=== PATIENT | male | born 1945 | race Caucasian/White ===

== ENCOUNTER 2022-02-11 09:20 | Emergency (ER) | payer MEDICARE, BC ==
[~2022-02-11] VITALS: Ht 172.7 cm; Wt 75.0 kg
[2022-02-11] MEDS ORDERED: LIDOCAINE HCL/EPINEPHRINE 1%-EPI 1:100,000 20 ML VIAL INFIL ONE (10:15)
[2022-02-11] MEDS ORDERED: BACITRACIN ZINC OINT UDPKT TOP ONE (10:15)
[2022-02-11] MEDS ORDERED: TETANUS, DIPHTHERIA, PERTUSSIS VAC/PF 0.5ML (>10YR OLD) IM ONE (10:15)
[2022-02-11] MEDS ORDERED: ONDANSETRON HCL 4MG/2ML INJ IV ONE (10:15)
[2022-02-11] MEDS ORDERED: MORPHINE SULFATE 4 MG/ML CPJ (NOT FOR IM USE) IV ONE (10:15)
[2022-02-11] MEDS ORDERED: MORPHINE SULFATE 10 MG/ML CPJ IM ONE (11:45)
[2022-02-11 11:50] VITALS: BP 138/94
[2022-02-11 11:59] LABS: CHLORIDE 108 mEq/L (98-107)
[2022-02-11 12:03] LABS: ETHANOL BLOOD < 10 mg/dL
[2022-02-11 12:13] LABS: BASOPHILS % 0.9 % (0.0-2.0); HEMATOCRIT. 32.9 % (42.0-52.0); HEMOGLOBIN. 11.1 g/dL (14.0-18.0); LYMPHOCYTES % 14.5 % (20.0-50.0); MEAN CORPUSCULAR HEMOGLOBIN 34.9 pg (28.0-32.0); MEAN PLATELET VOLUME 7.9 fl (7.4-10.4); MONOCYTES % 4.9 % (2.0-8.0); NEUTROPHILS % 78.7 % (40.0-76.0); PLATELET 169 x1000/uL (130-400); RED BLOOD CELL COUNT 3.19 mill/uL (4.7-6.1); RED CELL DISTRIBUTION WIDTH 13.7 % (11.6-14.6)
== END 2022-02-11 15:01 | disposition left against medical advice (07) ==
LOC: ER 09:30 → EDBD 09:30 → ER 15:01
DX: S02.831A Fracture of medial orbital wall, right side, initial encounter for closed fracture (principal); S02.40CA Maxillary fracture, right side, initial encounter for closed fracture; S01.111A Laceration without foreign body of right eyelid and periocular area, initial encounter; W18.39XA Other fall on same level, initial encounter; Y93.89 Activity, other specified; Y92.89 Other specified places as the place of occurrence of the external cause; Y99.8 Other external cause status; I50.9 Heart failure, unspecified
CPT/HCPCS: 12011; 36415; 70450; 70486; 71045; 72125; 73502; 73560; 80053; 80320; 83880; 84484; 85025; 86850; 86900; 86901; 93005; 96372; 99285; J2270; J3490; L1830; J2405; G0480